=== PATIENT | male | born 1950 | race Caucasian/White ===

== ENCOUNTER 2022-12-23 20:04 | Emergency (ER) | payer MEDICARE, OTHER, SELFPAY ==
--- NOTE | ~2022-12-23 | CT_ITS ---
EXAMINATION: CT chest abdomen pelvis w con DATE: 12/24/2022 02:40 INDICATION: Chest and left upper quadrant abdominal tenderness post fall TECHNIQUE: Computed tomography (CT) of the chest, abdomen, and pelvis was performed with 100 mL Omnip aque-350 intravenous contrast. Automated exposure control and iterative reconstruction technique were employed. The dose-length product was 1787.94 mGy-cm. COMPARISON: None FINDINGS: CHEST CT: Mild bilateral dependent atelectasis as well as mild left basilar atelectasis along the elevated left hemidiaphragm. No pneumonia, pulmonary edema, pleural effusion or pneumothorax. Heart size is normal . No pericardial effusion. Thoracic aorta is normal in caliber with no dissection or acute traumatic aortic injury. No pathologically enlarged thoracic lymphadenopathy. Nondisplaced lateral left fifth-s eventh rib fractures. Bilateral gynecomastia. There are bridging osteophytes at multiple levels in th e spine, consistent with diffuse idiopathic skeletal hyperostosis (DISH). ABDOMEN/PELVIS CT: Mild focal hepatic steatosis along the ligamentum teres. Gallbladder, spleen, pancreas and bilateral adrenal glands are normal. Bilateral renal cysts the largest measuring 4.1 cm the left kidney. There are few scattered colonic diverticula without adjacent inflammatory stranding to suggest diverticulit is. Small bowel and appendix are normal. Diffuse mild bladder wall thickening to at least in part to incomplete distention but potentially also related either cystitis or chronic outlet obstruction from the enlarged prostate. Small fat-containing left inguinal hernia. No free intraperitoneal gas or flu id. No pathologically enlarged abdominal or pelvic lymphadenopathy. Severe disc height loss with vacu um phenomena at L4-L5 and postoperative changes of posterior decompression with L4 laminectomy. Heter otopic ossification at the bilateral greater trochanters. Asymmetric atrophy of a portion of the left gluteus medius muscle belly suggesting likely associated partial tendon tear. IMPRESSION: 1. Nondisplaced lateral left fifth-seventh rib fractures. 2. Mild elevation of the left hemidiaphragm with mild left basilar atelectasis potentially related to splinting. No pneumothorax or other acute cardiopulmonary disease. 3. Diffuse mild bladder wall thickening to at least in part to incomplete distention but potentially also related either cystitis or chronic outlet obstruction from the enlarged prostate. 4. Small fat-containing left inguinal hernia. Reviewed, dictated and finalized at location A. IMPRESSION: 1. Nondisplaced lateral left fifth-seventh rib fractures. 2. Mild elevation of the left hemidiaphragm with mild left basilar atelectasis potentially related to splinting. No pneumothorax or other acute cardiopulmonar y disease. 3. Diffuse mild bladder wall thickening to at least in part to incomplete diste ntion but potentially also related either cystitis or chronic outlet obstructio n from the enlarged prostate. 4. Small fat-containing left inguinal hernia.
--- NOTE | ~2022-12-23 | XR_ITS ---
EXAMINATION: XR chest 2V Exam Date/Time: 12/23/2022 21:00 CDT HISTORY: Fall, FELL ONTO CANE, left rib pain Comparison: None available. RESULT: Lines, tubes, and devices: None. Lungs and pleura: Senescent/emphysematous change. Left hemidiaphragm elevation. Bibasilar scar/atele ctasis. Cardiomediastinal silhouette: Unremarkable. Other: No acute osseous or upper abdominal finding. Degenerative changes in the spine and bilateral shoulders. IMPRESSION: No acute cardiopulmonary process. Reviewed, dictated and finalized at location K.
--- NOTE | ~2022-12-23 | CT_ITS ---
EXAMINATION: CT brain wo con DATE: 12/24/2022 02:37 INDICATION: Head injury. TECHNIQUE: Computed tomography (CT) of the head was performed without intravenous contrast. The mA wa s adjusted according to patient size. Iterative reconstruction technique was employed. The dose-lengt h product was 681.00 mGy-cm. COMPARISON: None FINDINGS: There are scattered areas of low attenuation in the cerebral white matter. There is no intr acranial hemorrhage, acute infarction, or abnormal intracranial mass lesion. The ventricles are melvi l in size. There is mild mucosal thickening in the paranasal sinuses. The mastoid air cells are melvi l. The orbits are normal. IMPRESSION: 1. Mild nonspecific cerebral white matter disease, which likely represents chronic small vessel ische gifty disease. Reviewed, dictated and finalized at location A. IMPRESSION: 1. 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
--- NOTE | ~2022-12-23 | CT_ITS ---
EXAMINATION: CT cervical spine wo con DATE: 12/24/2022 02:37 INDICATION: Head injury. TECHNIQUE: Computed tomography (CT) of the cervical spine was performed without intravenous contrast. Automated exposure control and iterative reconstruction technique were employed. The dose-length pro duct was 559.79 mGy-cm. COMPARISON: None FINDINGS: There is mild emphysema. There is kyphosis of cervical spine. There is 2 mm retrolisthesis of C4 on C5. There is mild chronic anterior wedging of T1 and T2 vertebral bodies. There is mildly de creased disc height at C3-C4 and severely decreased disc height at C4-C5. The following disc levels a re specifically discussed: C2-C3: There is mild bilateral uncovertebral joint osteoarthritis. There is severe bilateral facet genesis int osteoarthritis. There is mild bilateral neural foraminal stenosis. There is no central canal sten osis. C3-C4: There is moderate left uncovertebral joint osteoarthritis. There is mild right and severe left facet joint osteoarthritis. There is moderate left neural foraminal stenosis. There is mild central canal stenosis. C4-C5: There is severe bilateral uncovertebral joint osteoarthritis. There is severe bilateral facet joint osteoarthritis. There is mild right and moderate left neural foraminal stenosis. There is mild central canal stenosis. C5-C6: There is no uncovertebral joint osteoarthritis. There is severe right and mild left facet join t osteoarthritis. There is mild right neural foraminal stenosis. There is no central canal stenosis. C6-C7: There is no uncovertebral joint osteoarthritis. There is mild bilateral facet joint osteoarthr itis. There is no neural foraminal stenosis. There is no central canal stenosis. C7-T1: There is no uncovertebral joint osteoarthritis. There is mild bilateral facet joint osteoarthr itis. There is no neural foraminal stenosis. There is no central canal stenosis. IMPRESSION: 1. No fracture. 2. Severe cervical spondylosis. 3. Mild emphysema. Reviewed, dictated and finalized at location A.
[2022-12-23 20:29] VITALS: BP 111/55; PULSE 77; RESP 16; TEMP 36.3; O2SAT 95
--- NOTE | 2022-12-24 00:55 | ED.FALL ---
HPI - Fall General Chief Complaint: Fall <GISSEL Mcdowell Last Filed: 12/24/22 04:20> Stated Complaint: Fall, left ribs, hit head (-) loc <GISSEL Mcdowell Last Filed: 12/24/22 04:20> Time Seen by Provider: 12/24/22 00:11 <GISSEL Mcdowell Last Filed: 12/24/22 04:20> History of Present Illness HPI Narrative: Patient is a 72-year-old male here for evaluation after a fall earlier today. Patient states that he was ambulating in his usual state of health down an incline when he lost control of his footing causing him to fall and strike the left side of his thorax against the ground. Patient did hit his head but did not lose consciousness. He does not take blood thinners. He states that he has a foot drop on the left that leaves him with chronic unsteadiness. Currently complaining of left-sided chest/rib pain and left upper quadrant abdominal pain. He took Tylenol prior to arrival without improvement of his symptoms. He has a history of COPD and denies increased shortness of breath. <GISSEL Mcdowell Last Filed: 12/24/22 04:20> Related Data Allergies/Adverse Reactions: Allergies Allergy/AdvReac Type Severity Reaction Status Date / Time Penicillins Allergy Rash Verified 12/23/22 20:06 Sulfa (Sulfonamide Allergy Blister Verified 12/23/22 20:06 Antibiotics) <GISSEL Mcdowell Last Filed: 12/24/22 04:20> Review of Systems Review of Systems: Gen.: Denies fevers or chills Eyes: Denies eye pain or visual change ENT: Denies congestion Respiratory: Denies shortness of breath or cough CV: Denies chest pain or palpitations GI: Reports left upper abdominal pain denies burning, urgency, frequency or hematuria Musculoskeletal: Denies back pain or muscle pain Neuro: Denies numbness, tingling, weakness or focal weakness Skin: Denies rash Except as documented, all other systems reviewed and negative <GISSEL Mcdowell Last Filed: 12/24/22 04:20> Exam Narrative: APPEARANCE: Well appearing, no pain in distress, well-nourished. Head: Normocephalic and atraumatic. EYES: PERRLA/EOMI, conjunctivae clear NOSE: No nasal drainage EARS: External ear normal in appearance THROAT: Oropharynx is clear. Mucous membranes are moist. NECK: Supple. No adenopathy, no masses. RESPIRATORY: There is diffuse expiratory wheezing. Airway patent, respirations nonlabored. Clear to auscultation bilaterally, no rales, rhonchi. CARDIOVASCULAR: Regular rate and rhythm without murmurs, rubs, or gallops. ABDOMINAL: Patient has abdominal tenderness in the left upper quadrant with no rebound tenderness or guarding. MUSCULOSKELETAL: Patient has tenderness to palpation along the left lateral ribs 9 and 10 with no flail chest deformity. Extremities are warm and well-perfused. Moves all extremities well. No edema. NEURO: Normal speech. No focal neurologic deficits. SKIN: Skin is warm and dry. No rashes. PSYCHIATRIC: Normal affect/mood.. <Anna Turk PA-C - Last Filed: 12/24/22 04:20> Course Course Emergency Course: Spoke with Dr. Cooper, hospitalist, recommends transfer Spoke with Dr. Art, ED doctor at [facility], will contact trauma surgery to see if patient can come over <Anna Turk PA-C - Last Filed: 12/24/22 04:20> Spoke with Dr. Cooper, hospitalist, recommends transfer Spoke with Dr. Art, ED doctor at [facility], will contact trauma surgery to see if patient can come over Rejected from [facility]. Accepted at [facility]. T/f via ambulance. <Aj Jean MD - Last Filed: 12/24/22 05:37> SENIOR VICE PRESIDENT & GENERAL COUNSEL/PA Physician Supervision This is a was performed by both a physician and an APC. I performed all aspects of the MDM as documented w/ the following additions: 72-year-old male sent from Urgent Care is concern for rib fractures after a fall. Patient has 3 rib fractures on the left side. Given his advanced age and poor baseline respi
[2022-12-24] MEDS: HYDROcodone/acetaminophen (*CRX) 5-325 MG TABLET 1 TAB PO (01:02)
[2022-12-24] MEDS: LIDOCAINE 5% PATCH 1 PATCH TRANSDERM (01:02)
[2022-12-24 01:42] LABS: Alanine Aminotransferase 44 U/L (6-50); Albumin Level 4.2 g/dL (3.5-5.1); Alkaline Phosphatase 99 U/L (38-126); Anion Gap 9 mmol/L (8-16); Aspartate Amino Transferase 39 U/L (17-59); Bilirubin,Total 0.8 mg/dL (0.2-1.3); Blood Urea Nitrogen 16 mg/dL (9-20); Calcium 9.2 mg/dL (8.4-10.2); Carbon Dioxide 27 mmol/L (22-30); Chloride 102 mmol/L (98-107); Estimated CRCL calculation 103 ml/min; Estimated Glomerular Filt Rate > 60; Glucose 128 mg/dL (65-110); Sodium 138 mmol/L (137-145)
[2022-12-24 01:58] LABS: Basophils Absolute Auto 0.1 K/mm3 (0.0-0.1); Eosinophils Absolute Auto 0.1 K/mm3 (0-0.3); Eosinophils Percent Auto 1.7 % (0-4.4); Hematocrit 41.7 % (42.0-52.0); Hemoglobin 14.1 g/dL (14.0-18.0); Immature Granulocyte Absolute 0.06 K/mm3 (0.00-0.031); Immature Granulocyte Percent A 0.9 % (0-0.5); Lymphocytes Absolute Auto 0.84 K/mm3 (0.9-3.2); Lymphocytes Percent Auto 12.2 % (18.3-44.2); Mean Corpuscular HGB Conc 33.8 g/dl (32-36); Mean Corpuscular Hemoglobin 33.3 pg (26-34); Mean Corpuscular Volume 98.3 fl (80-100); Monocytes Absolute Auto 0.8 K/mm3 (0.1-0.6); Monocytes Percent Auto 11.4 % (2.6-8.5); Neutrophils Percent Auto 72.8 % (45.5-73.1); Platelet Count Result 199 k/mm3 (150-375); Red Blood Count 4.24 M/mm3 (4.6-6.20); Red Cell Distribution Width 14.6 % (11.5-14.5); White Blood Count 6.9 K/mm3 (4.5-10.0)
[2022-12-24] MEDS: IPRATROPIUM BR 0.02% INH SOLN 0.5 MG/2.5 ML VIAL 1 MG INHALATION (04:14)
[2022-12-24 04:15] VITALS: PULSE 67; RESP 12
[2022-12-24] MEDS: LEVALBUTEROL NEB 1.25 MG/3 ML INHALATION (04:15)
[2022-12-24] MEDS: KETOROLAC 15 MG/ML VIAL (*BKC) IV PUSH (05:30)
[2022-12-24] MEDS: ACETAMINOPHEN 500 MG TABLET 1000 MG PO (05:31)
== END 2022-12-24 05:38 | disposition short-term general hospital (02) ==
PROVIDERS: Emergency Provider Physician Assistant
DX: S22.42XA Multiple fractures of ribs, left side, initial encounter for closed fracture (principal); J43.9 Emphysema, unspecified; R90.82 White matter disease, unspecified; M47.812 Spondylosis without myelopathy or radiculopathy, cervical region; K40.90 Unilateral inguinal hernia, without obstruction or gangrene, not specified as recurrent; R93.41 Abnormal radiologic findings on diagnostic imaging of renal pelvis, ureter, or bladder
CPT/HCPCS: 36415; 70450; 71046; 71260; 72125; 74177; 80053; 85025; 94640; 96374; 99285; A9270; J1885; Q9967